=== PATIENT | female | born 1990 | race Caucasian/White ===

== ENCOUNTER → 2018-09-18 | Outpatient (REF) | payer OTHER | LOC: M LAB LCGH 13:00 | PROVIDERS: ATTEND Physician Assistant | DX: Z12.4 Encounter for screening for malignant neoplasm of cervix (principal) ==

== ENCOUNTER → 2021-05-17 | Outpatient (CLI) | payer OTHER ==
[~2021-05-17] MED LIST: CLOB0.057 TOP; ISIB1TAB PO
== END ==
LOC: M LABSMTC 09:06
PROVIDERS: ATTEND Anesthesiology
DX: Z11.52 Encounter for screening for COVID-19 (principal); Z20.828 Contact with and (suspected) exposure to other viral communicable diseases

== ENCOUNTER → 2021-05-28 | Outpatient (CLI) | payer OTHER | LOC: M LABSMTC 10:51 | PROVIDERS: ATTEND Anesthesiology | DX: Z01.812 Encounter for preprocedural laboratory examination (principal); Z20.822 Contact with and (suspected) exposure to COVID-19 ==

== ENCOUNTER → 2021-06-01 | Day surgery (SDC) | payer SELFPAY, OTHER ==
[~2021-06-01] VITALS: Ht 160 cm; Wt 76.1 kg
[~2021-06-01] MED LIST changes: +ACETAMINOPHEN 1000MG 100ML IV BTL (OFIRMEV) (J0131 PER 10MG) As Ordered ONE; +BUPIVACAINE HCL 0.25% 30ML VIAL As Ordered ONE; +BUPIVACAINE LIPOSOME/PF 1.3% 20ML VIAL (13.3MG/ML)(EXPAREL)(C9290 PER1MG) As Ordered ONE; +CelecoXIB 400 MG CAP PO ONE; +GENTAMICIN SULF 80MG/2ML VIAL As Ordered ONE; +LIDOCAINE 1% SDV 30ML VIAL As Ordered ONE; +LIDOCAINE 2% INJ 100 MG/5 ML SYRINGE As Ordered ONE; +LIDOCAINE 2% JELLY 5ML TUBE As Ordered ONE; +LR 1,000 ML IV ONE; +LR 1,000 ML IV SCH; +MEPERIDINE INJ 25 MG/ML VIAL (J2175) IV PRN; +METOCLOPRAMIDE INJ 10MG/2ML VIAL (J2765 PER 1) As Ordered ONE; +MIDAZOLAM INJ 2MG/2ML VIAL (J2250 PER 1MG) As Ordered ONE; +MORPHINE 2 MG/ML 1ML VIAL (J2270) IV PRN; +ONDANSETRON 4MG/2ML VIAL As Ordered ONE; +ONDANSETRON 4MG/2ML VIAL IV PRN; +PERCOCET 5MG/325MG TAB PO PRN; +PROMETHAZINE INJ 25 MG/ML VIAL (J2550) IV PRN; +SCOPOLAMINE 1MG TRANSDERMAL PATCH TOP ONE; +SUCCINYLCHOLINE 100 MG/5 ML SYRINGE (J0330) As Ordered ONE; +SUGAMMADEX SODIUM 500 MG/5 ML VIAL (BRIDION) As Ordered ONE; +TRAM50TA2 PO; +ceFAZolin SOD 2 GM in IV 1 EA IV ONE; +dexameTHASONE 4 MG/ML 1ML VIAL (J1100 PER 1MG) As Ordered ONE; +fentaNYL 250 MCG/5 ML INJECTION As Ordered ONE; +propofoL 200 MG/20 ML VIAL As Ordered ONE
[2021-06-01 15:58] VITALS: BP 124/64
== END | disposition home or self-care (01) ==
LOC: M SDC 08:27
PROVIDERS: ATTEND Plastic Surgery Surgery of the Hand
DX: N64.81 Ptosis of breast (principal); N64.82 Hypoplasia of breast; K42.0 Umbilical hernia with obstruction, without gangrene; L98.7 Excessive and redundant skin and subcutaneous tissue; F32.9 Major depressive disorder, single episode, unspecified; F41.9 Anxiety disorder, unspecified; K21.9 Gastro-esophageal reflux disease without esophagitis; Z79.3 Long term (current) use of hormonal contraceptives; Z88.5 Allergy status to narcotic agent; Z91.040 Latex allergy status; F17.220 Nicotine dependence, chewing tobacco, uncomplicated
CPT/HCPCS: 19316; 19325; 49587; 81025; 88302; C9290; J0131; J0330; J0690; J1100; J1580; J2250; J2405; J2765; J3010

== ENCOUNTER → 2022-03-14 | Outpatient (CLI) | payer OTHER, SELFPAY ==
[~2022-03-14] MED LIST changes: -ACETAMINOPHEN 1000MG 100ML IV BTL (OFIRMEV) (J0131 PER 10MG) As Ordered ONE; +ALBU8.5H INH; -BUPIVACAINE HCL 0.25% 30ML VIAL As Ordered ONE; -BUPIVACAINE LIPOSOME/PF 1.3% 20ML VIAL (13.3MG/ML)(EXPAREL)(C9290 PER1MG) As Ordered ONE; -CelecoXIB 400 MG CAP PO ONE; +FAMO40TA3 PO; -GENTAMICIN SULF 80MG/2ML VIAL As Ordered ONE; -LIDOCAINE 1% SDV 30ML VIAL As Ordered ONE; -LIDOCAINE 2% INJ 100 MG/5 ML SYRINGE As Ordered ONE; -LIDOCAINE 2% JELLY 5ML TUBE As Ordered ONE; -LR 1,000 ML IV ONE; -LR 1,000 ML IV SCH; -MEPERIDINE INJ 25 MG/ML VIAL (J2175) IV PRN; -METOCLOPRAMIDE INJ 10MG/2ML VIAL (J2765 PER 1) As Ordered ONE; -MIDAZOLAM INJ 2MG/2ML VIAL (J2250 PER 1MG) As Ordered ONE; -MORPHINE 2 MG/ML 1ML VIAL (J2270) IV PRN; -ONDANSETRON 4MG/2ML VIAL As Ordered ONE; -ONDANSETRON 4MG/2ML VIAL IV PRN; -PERCOCET 5MG/325MG TAB PO PRN; -PROMETHAZINE INJ 25 MG/ML VIAL (J2550) IV PRN; -SCOPOLAMINE 1MG TRANSDERMAL PATCH TOP ONE; -SUCCINYLCHOLINE 100 MG/5 ML SYRINGE (J0330) As Ordered ONE; -SUGAMMADEX SODIUM 500 MG/5 ML VIAL (BRIDION) As Ordered ONE; -ceFAZolin SOD 2 GM in IV 1 EA IV ONE; -dexameTHASONE 4 MG/ML 1ML VIAL (J1100 PER 1MG) As Ordered ONE; -fentaNYL 250 MCG/5 ML INJECTION As Ordered ONE; -propofoL 200 MG/20 ML VIAL As Ordered ONE
== END ==
LOC: M LABSMTC 11:10
PROVIDERS: ATTEND Anesthesiology
DX: Z18.12 Retained nonmagnetic metal fragments (principal); Z11.52 Encounter for screening for COVID-19

== ENCOUNTER 2022-03-19 06:13 | Day surgery (SDC) | payer SELFPAY, OTHER ==
[~2022-03-19] VITALS: Ht 160 cm; Wt 76.6 kg
[~2022-03-19 06:13] MED LIST changes: +ceFAZolin SOD 2 GM in IV 1 EA IV ONE
[2022-03-19] MEDS ORDERED: LR 1,000 ML IV SCH ×2 (06:45→11:10)
[2022-03-19] MEDS ORDERED: GENTAMICIN SULF 80MG/2ML VIAL As Ordered ONE (07:16)
[2022-03-19] MEDS ORDERED: BUPIVACAINE LIPOSOME/PF 1.3% 20ML VIAL (13.3MG/ML)(EXPAREL) As Ordered ONE (07:16)
[2022-03-19] MEDS ORDERED: BUPIVACAINE HCL 0.25% 10ML VIAL As Ordered ONE (07:16)
[2022-03-19] MEDS ORDERED: LIDOCAINE 2% 100MG/5ML SDV (FOR ANES.) As Ordered ONE (07:24)
[2022-03-19] MEDS ORDERED: ROCURONIUM BROMIDE 50 MG/5 ML VIAL As Ordered ONE ×2 (07:24→08:42)
[2022-03-19] MEDS ORDERED: ONDANSETRON 4MG 2ML VIAL As Ordered ONE (07:24)
[2022-03-19] MEDS ORDERED: MIDAZOLAM INJ 2MG/2ML VIAL (J2250 PER 1MG) As Ordered ONE (07:24)
[2022-03-19] MEDS ORDERED: propofoL 200 MG/20 ML VIAL As Ordered ONE (07:24)
[2022-03-19] MEDS ORDERED: fentaNYL 250 MCG/5 ML INJECTION As Ordered ONE (07:24)
[2022-03-19] MEDS ORDERED: ACETAMINOPHEN 1000MG 100ML IV BAG As Ordered ONE (08:04)
[2022-03-19] MEDS ORDERED: SUGAMMADEX SODIUM 500 MG/5 ML VIAL (BRIDION) As Ordered ONE (08:04)
[2022-03-19] MEDS ORDERED: PHENYLephrine 500MCG 5ML (100MCG/ML) SYRINGE As Ordered ONE (08:11)
[2022-03-19] MEDS ORDERED: ePHEDrine SULFATE 25 MG/5 ML(5MG/ML) SYRINGE As Ordered ONE (08:35)
[2022-03-19] MEDS ORDERED: HYDROmorphone HCL 2MG/ML 1ML VIAL As Ordered ONE (09:00)
[2022-03-19] MEDS ORDERED: SEVOFLURANE INHAL SOLN 250 ML BTL As Ordered ONE (09:17)
[2022-03-19] MEDS ORDERED: HYDROMORPHONE HCL 0.5 MG/ 0.5 ML SYRINGE (J1170 PER 1) IV PRN (11:10)
[2022-03-19] MEDS ORDERED: oxyCODONE 5MG TAB PO PRN (11:10)
[2022-03-19] MEDS ORDERED: ONDANSETRON 4MG 2ML VIAL IV PRN (11:10)
[2022-03-19] MEDS ORDERED: fentaNYL 100 MCG/2 ML INJECTION IV PRN (11:10)
[2022-03-19] MEDS ORDERED: OXYC1TAB23 PO (15:51)
[2022-03-19 16:10] VITALS: BP 140/76
== END 2022-03-19 16:19 | disposition home or self-care (01) ==
LOC: M SDC 06:13
PROVIDERS: ATTEND Plastic Surgery Surgery of the Hand
DX: N64.81 Ptosis of breast (principal); N64.4 Mastodynia; L90.5 Scar conditions and fibrosis of skin; K21.9 Gastro-esophageal reflux disease without esophagitis; F41.9 Anxiety disorder, unspecified; Z87.440 Personal history of urinary (tract) infections; Z88.5 Allergy status to narcotic agent; Z91.040 Latex allergy status; Z79.899 Other long term (current) drug therapy; Z79.3 Long term (current) use of hormonal contraceptives; Z72.0 Tobacco use
CPT/HCPCS: 19342; 19380; 81025; 88300; 88302; C9290; J0131; J0690; J1100; J1170; J1580; J2250; J2370; J2405; J3010; L8600

== ENCOUNTER → 2023-07-07 | Outpatient (REF) | payer SELFPAY, OTHER, BC ==
[~2023-07-07] MED LIST changes: +OXYC1TAB23 PO; -ceFAZolin SOD 2 GM in IV 1 EA IV ONE
== END ==
LOC: M SFHCWAGY 17:48
PROVIDERS: ATTEND Nurse Practitioner Family
DX: Z11.51 Encounter for screening for human papillomavirus (HPV) (principal)
CPT/HCPCS: 87624; G0123

== ENCOUNTER → 2024-04-28 | Outpatient (REF) | payer BC | LOC: M SFHCADAM 08:19 | PROVIDERS: ATTEND Nurse Practitioner Family | DX: L40.9 Psoriasis, unspecified (principal) ==

== ENCOUNTER → 2024-10-01 | Outpatient (REF) | payer BC ==
[2024-10-01 13:48] LABS: BILIRUBIN,DIRECT 0.2 MG/DL (<0.4); BILIRUBIN,TOTAL 0.8 MG/DL (0.3-1.2); TOTAL PROTEIN 7.3 G/DL (5.7-8.2)
== END ==
LOC: M LABDRWAD 12:37
PROVIDERS: ATTEND Nurse Practitioner Family
DX: L40.0 Psoriasis vulgaris (principal); Z79.899 Other long term (current) drug therapy; Z51.81 Encounter for therapeutic drug level monitoring